=== PATIENT | male | born 1965 | race Caucasian/White ===

== ENCOUNTER → 2019-04-28 13:26 | Outpatient (BNVA) | payer BC, SELFPAY | PROVIDERS: Family Provider Nurse Practitioner Family; PCP Registered Nurse; Visit Provider Nurse Practitioner Family | DX: R05 Cough (principal); J06.9 Acute upper respiratory infection, unspecified | CPT/HCPCS: 87804 ==

== ENCOUNTER → 2019-11-01 09:01 | Outpatient (BNVA) | payer BC, SELFPAY | PROVIDERS: Family Provider Nurse Practitioner Family; PCP Registered Nurse; Visit Provider Registered Nurse | DX: Z12.11 Encounter for screening for malignant neoplasm of colon (principal); Z02.89 Encounter for other administrative examinations; E11.9 Type 2 diabetes mellitus without complications; K64.9 Unspecified hemorrhoids | CPT/HCPCS: 80053; 80061 ==

== ENCOUNTER → 2019-12-09 10:22 | Outpatient (BNVA) | payer BC, SELFPAY | PROVIDERS: Family Provider Nurse Practitioner Family; PCP Registered Nurse; Visit Provider Surgery | DX: Z20.828 Contact with and (suspected) exposure to other viral communicable diseases (principal) | CPT/HCPCS: 87635 ==

== ENCOUNTER 2019-12-12 05:50 | Day surgery (SDC) | payer BC, SELFPAY ==
[2019-12-08 12:51] VITALS: BMI 35.6
[2019-12-12 06:06] VITALS: BP 134/83; PULSE 60; RESP 18; TEMP 36.3; O2SAT 99; BMI 35.3
[2019-12-12] MEDS: sodium chloride 0.9% 1,000 ML 30 ML IV (06:15)
--- NOTE | 2019-12-12 06:23 | W.PM.OPSUD ---
Surgery/Procedure H&P Update DATE OF PROCEDURE: December 12, 2019 DATE H&P PERFORMED: 11/17/19 H&P UPDATE INFORMATION: I have reviewed H&P completed within last 30 days, I have examined patient prior to procedure and No changes to prior documentation PREOP DIAGNOSIS: Screening colonoscopy PRIMARY INDICATION FOR PROCEDURE: The same PLANNED PROCEDURE: Operation Date: 12/12/19 07:00 Proposed Procedures p Colonoscopy 42250 Z12.11(Not Applicable) - Samuel Salinas MD
[2019-12-12 06:25] LABS: Glucose Point of Care 174 mg/dL (70-110)
--- NOTE | 2019-12-12 06:39 | ANES.PREANE2 ---
Pre-Anesthetic Assessment Pre-Anesthetic Assessment: Height/Weight: Height 1.88 m Weight 124.738 kg Temp Pulse Resp BP Pulse Ox 97.3 F L 60 18 134/83 99 12/12/19 06:06 12/12/19 06:06 12/12/19 06:06 12/12/19 06:06 12/12/19 06:06 Preop Diagnosis: Screening colonoscopy Proposed Procedure: Operation Date: 12/12/19 07:00 Proposed Procedures p Colonoscopy 11757 Z12.11(Not Applicable) - Samuel Salinas MD Familial anesthetic complications: NOne Was Beta Diane taken within 24 hours: N/A Last intake: Intake Last Liquid Date 12/11/19 Last Liquid Time 21:30 Last Solid Date 12/10/19 Last Solid Time 20:00 Social: Social History: No alcohol and No tobacco Exam: Pre-Anes Outpt Exam: alert, oriented x 3, clear to auscultation bilaterally and regular rate & rhythm Airway: Cervical ROM: WNL MP: 3 Dentition: Full Metabolic: Metabolic: DM and Morbid obesity Anesthetic Plan: ASA status: 2 Anesthesia: MAC Risk of > 500 ml blood loss (7ml/kg in children): No PFSH Anesthesia PFSH: Medical History Essential hypertension Gout, arthritis Type 2 diabetes, HbA1c goal < 7% Social History Smoking and tobacco status: never smoked Alcohol intake: never Household members: spouse Marital status: Current occupational status: employed History of recent travel: No Data Anesthesia Other Labs: Laboratory Results - last 48 hr 12/12/19 06:20 POC Glucose 174 Cardiac Studies: No Data to Display
[2019-12-12 07:17] VITALS: BP 100/65; PULSE 70; RESP 16; TEMP 36.2; O2SAT 98
[2019-12-12 07:26] VITALS: BP 131/94; PULSE 60; RESP 18; O2SAT 96
--- NOTE | 2019-12-12 08:09 | ANE.PACU2 ---
Inpatient post-anesthesia follow up: Airway intact: Yes Vital signs: Temperature 97.2 F Pulse Rate 60 Respiratory Rate 18 Blood Pressure 131/94 Pulse Oximetry 96 Oxygen Delivery Me thod Room Air Oxygen Flow Rate Fraction of Inspir ed Oxygen Hydration adequate: Yes Nausea and vomiting: No Pain level: 0/10 Mental status: Baseline
== END 2019-12-12 07:37 | disposition home or self-care (01) ==
PROVIDERS: Family Provider Nurse Practitioner Family; PCP Registered Nurse; Visit Provider Surgery
PROC: 0DJD8ZZ Inspection of Lower Intestinal Tract, Via Natural or Artificial Opening Endoscopic (ICD-10-PCS; CPT 45378; principal; 2019-12-12 07:00)
DX: Z12.11 Encounter for screening for malignant neoplasm of colon (principal); K57.30 Diverticulosis of large intestine without perforation or abscess without bleeding; E11.9 Type 2 diabetes mellitus without complications; I10 Essential (primary) hypertension; E66.01 Morbid (severe) obesity due to excess calories; Z68.35 Body mass index [BMI] 35.0-35.9, adult; Z79.84 Long term (current) use of oral hypoglycemic drugs
CPT/HCPCS: 12345; 36416; 45378; 82962; J2704; J7030

== ENCOUNTER → 2019-12-22 09:23 | Outpatient (BNVA) | payer BC, SELFPAY | PROVIDERS: Family Provider Nurse Practitioner Family; PCP Registered Nurse; Visit Provider Registered Nurse | DX: Z11.59 Encounter for screening for other viral diseases (principal) | CPT/HCPCS: 87635 ==

== ENCOUNTER → 2020-01-16 09:09 | Outpatient (BNVA) | payer BC, SELFPAY | PROVIDERS: Family Provider Nurse Practitioner Family; PCP Registered Nurse; Visit Provider Registered Nurse | DX: R30.0 Dysuria (principal) | CPT/HCPCS: 81000 ==

== ENCOUNTER → 2020-01-23 12:55 | Outpatient (BNVA) | payer BC, SELFPAY | PROVIDERS: Family Provider Nurse Practitioner Family; PCP Registered Nurse; Visit Provider Registered Nurse | DX: N39.0 Urinary tract infection, site not specified (principal) | CPT/HCPCS: 81000 ==

== ENCOUNTER → 2020-03-28 09:34 | Outpatient (BNVA) | payer BC, SELFPAY | PROVIDERS: Family Provider Nurse Practitioner Family; PCP Registered Nurse; Visit Provider Registered Nurse | DX: E11.9 Type 2 diabetes mellitus without complications (principal); M77.8 Other enthesopathies, not elsewhere classified; M10.9 Gout, unspecified; I10 Essential (primary) hypertension | CPT/HCPCS: 80053; 81000; 83036 ==

== ENCOUNTER → 2021-01-01 10:44 | Outpatient (BNVA) | payer BC, SELFPAY | PROVIDERS: Family Provider Nurse Practitioner Family; PCP Registered Nurse; Visit Provider Registered Nurse | DX: I10 Essential (primary) hypertension (principal); E11.9 Type 2 diabetes mellitus without complications; E78.5 Hyperlipidemia, unspecified | CPT/HCPCS: 80053; 80061; 83036; 85025 ==

== ENCOUNTER 2021-07-26 06:56 | Outpatient (CLI) | payer SELFPAY ==
[2021-07-26 07:07] VITALS: BMI 34.9
--- NOTE | 2021-07-26 07:24 | ECG_ITS ---
[facility] Test Date: 2021-07-26 Pat Name: Dov Hawthorne Department: Room: Gender: Male Environmental Engineering Technician: Zoya Bradshaw : 1965 Requested By: Jimbo Mario Order Number: [id number] Robbins MD: Andres Ly M.D. Interpretive Statements NAME OF STUDY: EXERCISE SESTAMIBI STRESS TEST INDICATION: [Chest Pain, ] EXERCISE DATA: The patient was exercised by Tavo protocol. Baseline heart rate was 67 beats per minute. Baseline blood pressure was 140/73 millimeters of mercury. Target heart rate was 140 beats per minute. Maximum heart rate achieved was 145,which was 103% of the target heart rate. Maximum blood pressure was 201/91 millimeters of mercury. Total exercise time was 8 minutes and 58 seconds. Maximum METs achieved was 10.2, maximum VO2 was 35.7. The reason for ending the test was completion of the protocol. The patient complained of [] during the stress test, which then resolved at the end of the test. ELECTROCARDIOGRAM: BASELINE: Showed sinus rhythm, normal axis, no significant ST-T changes at the baseline noted. [] EXERCISE: At the peak exercise level, [] No significant ST-T changes suggestive of ischemia noted. [] RECOVERY: During the recovery period, heart rate dropped appropriately. No significant ST-T changes in the recovery suggestive of ischemia noted. [] CONCLUSION: 1. Exercise capacity good. 2. Heart rate response was appropriate. 3. Blood pressure response was appropriate. 4. Symptoms not suggestive of ischemia. 5. Electrocardiogram portion of the stress test was not suggestive of ischemia. 6. Nuclear scan will be documented separately. Electronically Signed On 08-26-2021 11:56:51 CDT by Andres Ly M.D. [id number]
--- NOTE | 2021-07-26 07:25 | NMCV_ITS ---
NM angela perf SPECT r/s* [id number] Dov Hawthorne Age: 56 Gender: M : 1965 Exam Date: 07/26/2021 07:25 Ordering Phys: Jimbo MarioP DIRECTOR INVESTMENT BANKING Technologist: ROSLYN Bryant Exam Location: [facility] Indications: CHEST PAIN STRESS TEST [facility] IMAGE PROTOCOL Rest/Stress 1 Exercise Day Radiopharmaceutical Dose (mCi) Administration Site Administered by Rest: Tc-99m 10.7 IV ROSLYN Bryant Sestamibi Stress:Tc-99m 32.5 IV ROSLYN Bryant Sestamibi Rest: 26-Jul-2021 60 Discovery 630 Stress: 26-Jul-2021 15 Discovery 630 Radiopharmaceutical was injected at 86 % maximum heart rate. Images obtained in supine and prone position. SPECT RESULTS Technical Quality: Excellent Raw Data Analysis: Normal Image Corrections: No attenuation or motion correction applied Summed Stress Score: 0 Summed Rest Score: 0 Summed Difference Score: 0 PERFUSION FINDINGS SPECT images demonstrate homogeneous tracer distribution throughout the myocardium. FUNCTIONAL RESULTS (calculated via Gated SPECT) Stress Image LV EF (%): 66 Stress EDV (mL):153 TID: 0.97 Stress ESV (mL):52 FUNCTIONAL FINDINGS: There is normal left ventricular systolic function. IMPRESSIONS 1. Normal myocardial perfusion imaging with no evidence of ischemia 2. LV systolic function is normal Andres Ly MD (Electronically Signed) Final Date: 26 Jul 2021 12:31 S
[2021-07-26 09:40] VITALS: BP 153/79; PULSE 94
== END 2021-07-26 06:57 | disposition home or self-care (01) ==
LOC: CDL 07:03
PROVIDERS: Family Provider Nurse Practitioner Family; PCP Registered Nurse; Visit Provider Internal Medicine
DX: R07.9 Chest pain, unspecified (principal); R06.02 Shortness of breath
CPT/HCPCS: 78452; 93017; A9500

== ENCOUNTER → 2021-08-15 14:44 | Outpatient (BNVA) | payer SELFPAY | PROVIDERS: Family Provider Nurse Practitioner Family; PCP Registered Nurse; Visit Provider Registered Nurse | DX: R30.0 Dysuria (principal); N39.0 Urinary tract infection, site not specified | CPT/HCPCS: 81000 ==

== ENCOUNTER → 2021-09-24 14:58 | Outpatient (BNVA) | payer SELFPAY | PROVIDERS: Family Provider Nurse Practitioner Family; PCP Registered Nurse; Visit Provider Registered Nurse | DX: E11.9 Type 2 diabetes mellitus without complications (principal); I10 Essential (primary) hypertension | CPT/HCPCS: 80053; 83036 ==

== ENCOUNTER → 2022-04-30 10:16 | Outpatient (BNVA) | payer SELFPAY | PROVIDERS: Family Provider Nurse Practitioner Family; PCP Registered Nurse; Visit Provider Dermatology | DX: Z13.6 Encounter for screening for cardiovascular disorders (principal) | CPT/HCPCS: 80061; 82947; 83036 ==

== ENCOUNTER → 2023-03-26 10:09 | Outpatient (BNVA) | payer SELFPAY | PROVIDERS: Family Provider Nurse Practitioner Family; PCP Registered Nurse; Visit Provider Registered Nurse | DX: E11.9 Type 2 diabetes mellitus without complications (principal); I10 Essential (primary) hypertension; M10.9 Gout, unspecified; M17.11 Unilateral primary osteoarthritis, right knee; M62.830 Muscle spasm of back | CPT/HCPCS: 80053; 80061; 83036; 85025 ==

== ENCOUNTER 2023-05-18 22:27 | Emergency (ER) | payer SELFPAY ==
[2023-05-18 22:40] VITALS: BP 137/67; PULSE 112; RESP 15; TEMP 36.6; O2SAT 97
--- NOTE | 2023-05-18 22:41 | XRR_ITS ---
PROCEDURE INFORMATION: Exam: XR Right Foot Exam date and time: 05/18/2023 10:49 PM Age: 58 years old Clinical indication: Injury or trauma; Blunt trauma; Right; Patient HX: C/O RT ankle and foot pain post fall this evening. History of gout. TECHNIQUE: Imaging protocol: Radiologic exam of the right foot. Views: 3 or more views. COMPARISON: No relevant prior studies available. FINDINGS: Bones/joints: Acute nondisplaced intra-articular fracture of the base of the 2nd proximal phalanx. Suggestion of subtle lucency and mild flattening of the contour of the anterior calcaneus. Soft tissues: Normal. XR/XR foot RT min 3V* [id number] IMPRESSION: 1. Acute nondisplaced intra-articular fracture of the base of the 2nd proximal phalanx. 2. Suggestion of linear lucency and mild flattening of the CALCANEUS may warrant further evaluation with CT if there is focal symptomatology to clarify the presence or absence of a calcaneal fracture.
--- NOTE | 2023-05-18 22:41 | XRR_ITS ---
PROCEDURE INFORMATION: Exam: XR Right Ankle Exam date and time: 05/18/2023 10:51 PM Age: 58 years old Clinical indication: Injury or trauma; Blunt trauma; Right; Patient HX: C/O RT ankle and foot pain post fall this evening. History of gout. TECHNIQUE: Imaging protocol: Radiologic exam of the right ankle. Views: 3 or more views. COMPARISON: CR (LOW EXM, ) 05/18/2023 10:49 PM FINDINGS: Bones/joints: Mild spurring of the tip of the malleoli and distal tibial plafond. No acute fracture or dislocation in the ankle. No ankle mortise widening or asymmetry. Soft tissues: Normal. XR/XR ankle RT min 3V* [id number] IMPRESSION: No acute plain radiographic abnormality in the ankle. Please refer to the foot radiograph dictated separately.
--- NOTE | 2023-05-18 23:31 | XRR_ITS ---
PROCEDURE INFORMATION: Exam: XR Right Knee Exam date and time: 05/18/2023 11:42 PM Age: 58 years old Clinical indication: Injury or trauma; Blunt trauma; Right; Patient HX: C/O RT knee pain post fall this evening. History of gout. ; Additional info: Fall, pain TECHNIQUE: Imaging protocol: Radiologic exam of the right knee. Views: 3 views. COMPARISON: CR (LOW EXM, ) 05/18/2023 10:51 PM FINDINGS: Bones/joints: Mild spurring of the superior pole of the patella. Mild spurring in the medial compartment with slight narrowing. No fracture or significant malalignment. Small-moderate knee joint effusion. Soft tissues: Normal. XR/XR knee RT 3V* [id number] IMPRESSION: No acute fracture on plain radiography. Small to moderate knee joint effusion. Further evaluation with CT or MR may be considered if there is persistent clinical suspicion for occult fracture.
--- NOTE | 2023-05-19 00:01 | W.ED.EXTPRO ---
HPI - Extremity Problem General: Chief complaint: Extremity Injury, Lower Stated complaint: fell right foot leg inury Time Seen by Provider: 05/18/23 23:22 Source: patient Mode of arrival: ambulatory Limitations: no limitations History of Present Illness: 58yo male presents with significant other for right knee, right foot, and right ankle pain following a fall that occurred earlier today. Patient reports he is not certain exactly how he landed. Reports that he had significant pain to the right knee and down into the foot. States that he did have some radiation up into the right buttock area. Reports that he is not able to bear weight on the right leg due to the pain. States that the most significant pain is to the right knee. Reports that he did have two 500 mg acetaminophen prior to arrival and also took 2 Epsom salt baths. Patient denies hitting his head, loss conscious, neck pain, back pain, any other concern at this time. Associated symptoms: Deny fever(s) Review of Systems Const: Denies: fever(s) Musc: Reports: extremity pain (Right knee, ankle, foot) [facility] PFSH: Medical History Essential hypertension Gout, arthritis Type 2 diabetes, HbA1c goal < 7% Social History Smoking and tobacco/nicotine status: never used tobacco/nicotine Alcohol intake: never Substance/Drug Use: never Household members: spouse Marital status: Current occupational status: employed Physical Exam Const: COMMON NORMALS: no acute distress, patient oriented x3 and alert ORIENTATION/CONSCIOUSNESS: Yes awake OTHER: Patient is sitting upright on stretcher no acute distress. He is able to give history with no difficulty. Significant other is at bedside HENMT: COMMON NORMALS: normocephalic HEAD & SCALP: normocephalic Neck/C-Spine: COMMON NORMALS: full ROM Chest: CHEST: Yes Symmetrical chest wall rise Resp: COMMON NORMALS: normal respiratory effort Extremity: RIGHT LOWER EXTREMITY: Yes knee joint Right knee: Yes palpation (Tenderness to palpation to the proximal tibia area) and Yes ROM (Decreased range of motion due to pain), Yes foot & digits (No tenderness to palpation. Full range of motion) and Yes foot & digits (Full range of motion) Neuro: COMMON NORMALS: patient oriented x3 SENSORIUM/ORIENTATION: Yes alert Psych: COMMON NORMALS: cooperative Course Vital Signs: Vital signs: Vital Signs Temperature 97.9 F 05/18/23 22:40 Pulse Rate 112 H 05/18/23 22:40 Respiratory Rate 15 05/18/23 22:40 Blood Pressure 137/67 05/18/23 22:40 Pulse Oximetry 97 05/18/23 22:40 Oxygen Delivery Me thod Room Air 05/18/23 22:40 MDM - Extremity (Nontraumatic) Medical Decision Making 58yo male here with significant other for evaluation of right knee, right ankle, and right foot pain following a fall that occurred this evening. Patient reports he has been unable to bear weight on the right leg. States he did take 2 Epsom salt baths and had two 500 mg acetaminophen prior to arrival. Patient denies hitting his head, loss conscious, neck pain, back pain, any other concern at this time. Patient is nontoxic in appearance. Vital signs are stable. Ankle x-ray and foot x-ray completed while awaiting room placement. Ankle x-ray reveals no radiographic abnormality. Foot x-ray reveals an acute nondisplaced intra-articular fracture of the base of the second proximal phalanx. Also noted is suggestion of linear lucency of the calcaneus, further evaluation with CT if exam is consistent with calcaneal fracture. X-ray of the knee reveals no acute fracture on plain radiograph he, but there is a small to moderate knee joint effusion. Recommends further evaluation with CT or MR if persistent clinical suspicion for occult fracture. No tenderness to palpation to the calcaneal area. Patient was able to bear weight in the emergency department on his left leg with minimal difficulty. He was able to ambulate in the exam room without difficulty. Discussed with patient the likelihood of a tibial plateau fracture is very low given that he is able to bear weight and ambulate. Also discussed with patient likelihood of a calcaneal fracture is low for the very same reasons. Postop shoe provided for patient due to the proximal phalanx fracture of the second toe. Discussed with patient skylar taping at night when he is not wearing the shoe and providing padding between the toes to avoid wounds. Given that the patient did have significant improvement after taking acetaminophen, advised patient to proceed with acetaminophen and naproxen if needed. Recommend rest, ice, elevation. Advised him to call primary care in a couple days with an update of symptoms and to discuss a recheck. Recommend returning to the emergency department if any further injury, rapid worsening symptoms, and as needed. Patient and family state understanding and have no further questions or concerns at this time. Medical Records I reviewed the patient's medical records. Lab Data Radiology Impressions Ankle X-Ray 05/18/23 22:41 IMPRESSION: No acute plain radiographic abnormality in the ankle. Please refer to the foot radiograph dictated separately. Foot X-Ray 05/18/23 22:41 IMPRESSION: 1. Acute nondisplaced intra-articular fracture of the base of the 2nd proximal phalanx. 2. Suggestion of linear lucency and mild flattening of the CALCANEUS may warrant further evaluation with CT if there is focal symptomatology to clarify the presence or absence of a calcaneal fracture. Knee X-Ray 05/18/23 23:31 IMPRESSION: No acute fracture on plain radiography. Small to moderate knee joint effusion. Further evaluation with CT or MR may be considered if there is persistent clinical suspicion for occult fracture. All radiology interpretation(s) finalized by discharge Discharge Plan Discharge Patient Disposition: Home Clinical Impression: Fall Qualifiers: Encounter type: initial encounter Qualified Code(s): W19.XXXA - Unspecified fall, initial encounter Fracture of toe of right foot Qualifiers: Encounter type: initial encounter Toe: lesser toe Fracture type: closed Phalanx: proximal Fracture alignment: nondisplaced Qualified Code(s): S92.514A - Nondisplaced fracture of proximal phalanx of right lesser toe(s), initial encounter for closed fracture Injury of knee, right Qualifiers: Encounter type: initial encounter Qualified Code(s): S89.91XA - Unspecified injury of right lower leg, initial encounter Condition: Stable Prescriptions: No Action empagliflozin 25 mg tablet 25 mg PO DAILY 90 Days Qty: 90 1RF liraglutide 0.6 mg/0.1 mL (18 mg/3 mL) pen injector 1.8 mg SUBCUT DAILY 90 Days Qty: 6 0RF lisinopril 10 mg tablet See Rx Instructions .ROUTE .COMPLEX Qty: 90 1RF Dose Instruction: TAKE 1 TABLET BY MOUTH DAILY Rx Instructions: TAKE 1 TABLET BY MOUTH DAILY allopurinol 300 mg tablet See Rx Instructions .ROUTE .COMPLEX Qty: 90 0RF Dose Instruction: TAKE 1 TABLET BY MOUTH DAILY Rx Instructions: TAKE 1 TABLET BY MOUTH DAILY baclofen 10 mg tablet 10 mg PO DAILY PRN (Reason: muscle spasm) 30 Days Qty: 30 0RF Discharge Orders: Discharge ED (Routine); Ordered 05/19/23 Ordered By: Riki Haywood Referrals: Jimbo Mario, CONTRACT SHELTERED WORKSHOP SUPERVISOR [Primary Care Provider] - Discharge Diet: Usual diet Discharge Activity: Limit activity as instructed Patient Instructions: Toe Fracture (ED), Knee Pain (ED) Activity Restrictions/Additional Instructions: You may use acetaminophen and naproxen as needed for pain and comfort Use the provided rigid bottom shoe to help protect your toe fracture. Additionally, you may skylar tape your toe to its neighbor. Please use a small piece of gauze between the toes to avoid wound formation Apply ice and elevate the knee and the toe to help with swelling and discomfort. Try to avoid prolonged walking for the next several days, slowly increase activity as tolerated. Follow-up with your doctor, call in a couple days with an update of symptoms and to discuss a recheck Return to the emergency department if any further injury, rapid worsening symptoms, and as needed Stand Alone Forms: Work/School Release Coding Level of Care Code ED Director Security Management for Uyen Serra
[2023-05-19 01:03] VITALS: BP 114/70; PULSE 86; RESP 18; O2SAT 93
== END 2023-05-19 01:03 | disposition home or self-care (01) ==
PROVIDERS: Emergency Provider Nurse Practitioner; PCP Registered Nurse
DX: S92.514A Nondisplaced fracture of proximal phalanx of right lesser toe(s), initial encounter for closed fracture (principal); S89.91XA Unspecified injury of right lower leg, initial encounter; I10 Essential (primary) hypertension; E11.9 Type 2 diabetes mellitus without complications; W19.XXXA Unspecified fall, initial encounter
CPT/HCPCS: 73562; 73610; 73630; 99284

== ENCOUNTER → 2024-01-14 11:32 | Outpatient (BNVA) | payer SELFPAY | PROVIDERS: PCP Registered Nurse; Visit Provider Registered Nurse | DX: E11.9 Type 2 diabetes mellitus without complications (principal) | CPT/HCPCS: 80053; 80061; 83036; 85025 ==

== ENCOUNTER 2024-09-30 13:32 | Outpatient (CLI) | payer MEDICARE, SELFPAY ==
--- NOTE | 2024-09-30 13:44 | XR_ITS ---
WS: [id number] Exam: XR foot LT min 3V* [id number] Date/Time of Exam: 09/30/2024 1:44 PM Reason For Exam: L03.032 - Cellulitis of left toe No acute fracture. No bone destruction identified. The joints are well- maintained. No radiopaque soft tissue foreign bodies. XR/XR foot LT min 3V* [id number] IMPRESSION: 1. Negative LEFT foot.
== END 2024-09-30 13:33 | disposition home or self-care (01) ==
PROVIDERS: PCP Registered Nurse; Visit Provider Registered Nurse
DX: L03.032 Cellulitis of left toe (principal); E11.9 Type 2 diabetes mellitus without complications; S91.109A Unspecified open wound of unspecified toe(s) without damage to nail, initial encounter; X58.XXXA Exposure to other specified factors, initial encounter
CPT/HCPCS: 73630; 80053; 83036; 85025

== ENCOUNTER → 2024-10-18 14:58 | Outpatient (BNVA) | payer MEDICARE, SELFPAY | PROVIDERS: PCP Registered Nurse; Visit Provider Podiatrist Foot & Ankle Surgery | DX: M79.672 Pain in left foot (principal); I87.2 Venous insufficiency (chronic) (peripheral); L84 Corns and callosities; E11.42 Type 2 diabetes mellitus with diabetic polyneuropathy; M21.41 Flat foot [pes planus] (acquired), right foot; M21.42 Flat foot [pes planus] (acquired), left foot; M20.41 Other hammer toe(s) (acquired), right foot; M20.42 Other hammer toe(s) (acquired), left foot | CPT/HCPCS: 73630; 99204 ==

== ENCOUNTER → 2024-12-13 13:33 | Outpatient (BNVA) | payer MEDICARE, SELFPAY | PROVIDERS: PCP Registered Nurse; Visit Provider Podiatrist Foot & Ankle Surgery | DX: I87.2 Venous insufficiency (chronic) (peripheral) (principal); L84 Corns and callosities; E11.42 Type 2 diabetes mellitus with diabetic polyneuropathy; M79.672 Pain in left foot; M21.41 Flat foot [pes planus] (acquired), right foot; M21.42 Flat foot [pes planus] (acquired), left foot; M20.41 Other hammer toe(s) (acquired), right foot; M20.42 Other hammer toe(s) (acquired), left foot | CPT/HCPCS: 99213 ==

== ENCOUNTER 2024-12-14 10:39 | Outpatient (CLI) | payer MEDICARE, SELFPAY | END 2024-12-14 10:40 | disposition home or self-care (01) | LOC: SPT 10:40 | PROVIDERS: PCP Registered Nurse; Visit Provider Podiatrist Foot & Ankle Surgery | DX: Z46.89 Encounter for fitting and adjustment of other specified devices (principal); E11.42 Type 2 diabetes mellitus with diabetic polyneuropathy; L84 Corns and callosities; M21.41 Flat foot [pes planus] (acquired), right foot; M21.42 Flat foot [pes planus] (acquired), left foot; M20.41 Other hammer toe(s) (acquired), right foot; M20.42 Other hammer toe(s) (acquired), left foot | CPT/HCPCS: L3030 ==

== ENCOUNTER → 2025-03-21 11:23 | Outpatient (BNVA) | payer MEDICARE, SELFPAY | PROVIDERS: PCP Registered Nurse; Visit Provider Podiatrist Foot & Ankle Surgery | DX: E11.42 Type 2 diabetes mellitus with diabetic polyneuropathy (principal); L84 Corns and callosities; M21.41 Flat foot [pes planus] (acquired), right foot; M21.42 Flat foot [pes planus] (acquired), left foot; M20.41 Other hammer toe(s) (acquired), right foot; M20.42 Other hammer toe(s) (acquired), left foot; E11.8 Type 2 diabetes mellitus with unspecified complications; I87.2 Venous insufficiency (chronic) (peripheral); M79.672 Pain in left foot | CPT/HCPCS: 99213 ==